=== PATIENT | male | born 1960 | race Caucasian/White ===

== ENCOUNTER 2016-10-06 10:04 | Day surgery (SDC) | payer OTHER ==
[~2016-10-06 10:04] MED LIST: NACL 0.9% 1000 ML 1,000 ML IV SCH
[2016-10-06] MEDS ORDERED: NACL BACTERIOSTATIC INFILTRATI ONE (10:41)
[2016-10-06] MEDS ORDERED: PEPCID PO NR (11:00)
[2016-10-06] MEDS ORDERED: ANCEF/STERILE WATER 2 GM/20 ML IV NR (11:00)
[2016-10-06] MEDS ORDERED: VERSED IV NR (11:00)
[2016-10-06] MEDS ORDERED: ZOFRAN IV PRN (11:47)
--- NOTE | 2016-10-06 11:47 | Anesthesia Consultation ---
Anesthesia Consult and Med Hx Date of service: 10/06/16 - Airway Anesthetic Teeth Evaluation: Good, Crowns (top right molar) ROM Head & Neck: Adequate Mental/Hyoid Distance: Adequate Mallampati Class: Class II Intubation Access Assessment: Probably Good - Pulmonary Exam CTA: Yes - Cardiac Exam Cardiac Exam: RRR - Pre-Operative Health Status ASA Pre-Surgery Classification: ASA1 Proposed Anesthetic Plan: General - Pulmonary Hx Smoking: Yes (former, quit in 1983) Hx Asthma: No - Cardiovascular System Hx Hypertension: No - Central Nervous System Hx Seizures: No CVA: No - Gastrointestinal Hx Ulcer: No Hx Gastroesophageal Reflux Disease: No - Hematic Hx Anemia: No
--- NOTE | 2016-10-06 11:47 | Anesthesia Day of Surgery ---
Anesthesia Day of Surgery - Day of Surgery Patient Examined: Yes Patient H&P Reviewed: Yes Patient is NPO: Yes
[2016-10-06] MEDS ORDERED: MARCAINE-EPI 0.25%-1:200,000 INFILTRATI ONE (12:48)
[2016-10-06] MEDS ORDERED: DEPO-MEDROL ONE (12:48)
[2016-10-06] MEDS ORDERED: DIPRIVAN 10 MG/ML IV ONE (13:01)
[2016-10-06] MEDS ORDERED: DILAUDID ONE (13:02)
[2016-10-06] MEDS ORDERED: NACL 0.9% IR ONE (13:20)
[2016-10-06] MEDS ORDERED: ZOFRAN ONE (13:23)
[2016-10-06] MEDS ORDERED: DECADRON ONE (13:23)
[2016-10-06] MEDS ORDERED: XYLOCAINE MPF 2% ONE (13:26)
[2016-10-06] MEDS: DILAUDID IV PRN ×4 (14:00→14:50)
[2016-10-06] MEDS ORDERED: NORCO 5/325 PO PRN (14:36)
[2016-10-06 15:02] VITALS: BP 128/76
== END 2016-10-06 15:38 | disposition home or self-care (01) ==
LOC: OR 10:04
PROVIDERS: ATTEND Orthopaedic Surgery
DX: M17.12 Unilateral primary osteoarthritis, left knee (principal); M94.262 Chondromalacia, left knee; M65.862 Other synovitis and tenosynovitis, left lower leg; Z87.891 Personal history of nicotine dependence
CPT/HCPCS: 29877; A4217; J0690; J1030; J1100; J1170; J2250; J2405; J2704; J7030